=== PATIENT | female | born 2000 | race Caucasian/White ===

== ENCOUNTER 2025-06-06 06:10 | Observation (INO) ==
--- NOTE | 2025-05-30 14:23 | Anesthesiology Consultation ---
Date of Service May 30, 2025 Assessment & Plan (1) Encounter for pre-operative examination: - check urine test STAT am DOS. - Per senior nuclear medicine technologist on 05/30/25: Strep throat diagnosed 05/16/25, completed antibiotic with persistent mild left sided throat irritation resolving with salt water rinse. COVID test not required given symptom onset greater than 10 days from procedure date. Chart Review Chart Review: Acceptable Risk for Surgery and Patient NOT seen in Pre Admission Testing History Surgery Operation Date: 06/06/25 07:30 Proposed Procedures p Bilateral Breast Reduction - Kourtney Narvaez MD Height/Weight Height: 5 ft 7 in Weight: 83.915 kg Allergies Allergy/AdvReac Type Severity Reaction Status Date / Time No Known Allergies Allergy Verified 05/30/25 13:28 Medications Home Medications Medication Instructions Recorded Confirmed Last Taken cholecalciferol (vitamin D3) 25 25 mcg PO DAILY 02/02/25 05/30/25 Unknown mcg (1,000 unit) capsule etonogestrel 68 mg subdermal 1 implant subdermal UD 02/02/25 05/30/25 Unknown implant (Nexplanon) ibuprofen 200 mg capsule 200 mg PO UD PRN Pain 02/02/25 05/30/25 Unknown magnesium 200 mg tablet 200 mg PO DAILY 02/02/25 05/30/25 Unknown cetirizine 10 mg tablet (Zyrtec) 10 mg PO UD PRN allergies 05/25/25 05/30/25 Unknown ondansetron HCl 4 mg tablet 4 mg PO Q6H PRN nausea and 05/25/25 05/25/25 Unknown vomiting #14 tabs albuterol sulfate 90 mcg/actuation 1 inh inhalation UD PRN hx 05/30/25 05/30/25 Unknown aerosol inhaler pneumnonia ascorbic acid 1,000 1 ea PO UD PRN immune support 05/30/25 05/30/25 Unknown fw-uelwlldnkdum-pqlyibap powder effervescent pack (Emergen-C) Past Medical History Medical History (Updated 05/30/25 @ 14:20 by Karina Doss PA-C) Anxiety, generalized controlled without medication at current History of COVID-2020, no hx hospitalization. History of pneumonia (09/2024) had lingering cough for 2 months following. Resolved. History of postoperative nausea and vomiting IBS (irritable bowel syndrome) PTSD (post-traumatic stress disorder) more of a hx per pt, controlled without medication at current. Past Family History Family History Other Asthma Cancer Stroke Past Surgical History Surgical History History of adenoidectomy History of wisdom tooth extraction Social History Smoking Status: Never smoker Do You Dip or Chew Tobacco: No Hx Alcohol Use: Yes Alcohol type: wine and hard liquor alcohol intake frequency: a few times a month Hx Substance Use: No substance use type: does not use Lab Results Anesthesia Preop Results Results Anesthesia Widget: WBC 10.35 K/ul (4.8-10.8) 05/25/25 Hgb 13.4 g/dl (12.0-16.0) 05/25/25 Hct 39.3 % (37.0-47.0) 05/25/25 Plt 368 K/uL (130-400) 05/25/25 Na 140 mmol/L (136-145) 05/25/25 K 4.3 mmol/L (3.5-5.1) 05/25/25 Cl 109 mmol/L (98-107) H 05/25/25 CO2 28 mmol/L (21-32) 05/25/25 BUN 15 mg/dl (6-23) 05/25/25 Creat 0.82 mg/dl (0.6-1.2) 05/25/25 Glucose Level 73 mg/dl (70-99(Fasting)) 05/25/25 PT 10.5 Seconds (9.0-12.0) 05/25/25 INR 1.0 (0.9-1.1) 05/25/25 Testing Electrocardiogram Date: 12/31/24 NSR, rate 89 bpm Nonspecific T wave abnormality Chest X-Ray Date: 10/17/24 No acute abnormality.
[2025-06-06] MEDS: LACTATED RINGER'S 1,000 ML IV SCH (06:50)
[2025-06-06] MEDS ORDERED: HYDROmorphone INJ 1 MG/ML SYRINGE IV PRN (06:51)
[2025-06-06] MEDS ORDERED: PROMETHAZINE HCL 6.25 MG in SODIUM CHLORIDE 0.9% 50 ML IV PRN (06:51)
[2025-06-06] MEDS ORDERED: ATROPINE SULFATE 0.1 MG/ML 10ML SYR IV PRN (06:51)
[2025-06-06] MEDS ORDERED: ONDANSETRON INJ 2 MG/ML 2 ML VIAL IV PRN ×2 (06:51→10:46)
--- NOTE | 2025-06-06 07:00 | History & Physical Bridge Note ---
Date of Service June 06, 2025 History & Physical Bridge Note I have examined the patient, reviewed the History & Physical and in the interval since the performance of the History & Physical I have noted the following changes of clinical significance: no changes noted Discussed technique-patient has given considerable thought to procedure and prefers free nipple grafting due to desire for smaller size (B cup if possible). Understands implications of technique-lack of sensation to NAC, inability to breastfeed. Consent obtained
[2025-06-06] MEDS ORDERED: LIDOCAINE 2% 2 ML VIAL/AMP(20MG/ML) INFIL ONE (07:03)
[2025-06-06] MEDS ORDERED: PROPOFOL IV EMULSION 10 MG/ML 20 ML VIAL IV ONE ×2 (07:03→08:55)
[2025-06-06] MEDS ORDERED: ROCURONIUM BROMIDE 10 MG/ML 5 ML VIAL IV ONE (07:03)
[2025-06-06] MEDS ORDERED: ONDANSETRON INJ 2 MG/ML 2 ML VIAL ONE (07:03)
[2025-06-06] MEDS ORDERED: MIDAZOLAM HCL 1 MG/ML 2ML VIAL ONE (07:04)
[2025-06-06] MEDS ORDERED: DexMEDEtomidine HCL IV 100 MCG/ML VIAL IV ONE (07:10)
[2025-06-06] MEDS: APREPITANT 40 MG CAP PO SCH (07:12)
[2025-06-06] MEDS: SCOPOLAMINE 1 MG/72 HR TDSY PATCH TD ONE (07:12)
[2025-06-06] MEDS ORDERED: ACETAMINOPHEN 1000 MG/100 ML IV IV ONE (07:14)
[2025-06-06] MEDS ORDERED: HYDROmorphone INJ 2 MG/ML SYR/VIAL ONE (08:00)
[2025-06-06] MEDS ORDERED: PHENYLEPHRINE HCL 10 MG/ML VIAL ONE (08:33)
[2025-06-06] MEDS: BUPIVACAINE 0.25% PF 30 ML VIAL ONE (10:29)
[2025-06-06] MEDS: LIDOCAINE 1%/EPINEPHRINE 1:100,000 50 ML VIAL ONE (10:30)
[2025-06-06] MEDS ORDERED: SUGAMMADEX SODIUM 200 MG/2 ML VIAL IV ONE (10:38)
[2025-06-06] MEDS ORDERED: GLYCOPYRROLATE 0.2 MG/ML VIAL ONE (10:40)
[2025-06-06] MEDS ORDERED: NEOSTIGMINE METHYLSULFATE 1 MG/ML 10ML VIAL ONE (10:40)
--- NOTE | 2025-06-06 10:40 | Post Operative Brief Note ---
PG Immediate Post Op with CF Date of Surgery June 06, 2025 Pre & Post Diagnosis Operation Date: 06/06/25 07:30 Pre-Op Diagnosis: Symptomatic Macromastia Post-Op Diagnosis: Symptomatic Macromastia I identified the patient and participated in the time-out.: Yes Procedure Operation Date: 06/06/25 07:30 Actual Procedures p Bilateral Breast Reduction with Free Nipple Graft(Bilateral) - Kourtney Narvaez MD Surgeon Kourtney Narvaez MD Electrical Wiring Lineman Leyla Benedict PA-C Estimated Blood Loss 15 Findings Consistent with Post-Op Diagnosis Specimens Specimen Description: A) Left breast tissue (to be weighed by pathology, call 2306 with result) B) Right breast tissue (to be weighed by pathology, call 2306 with results) Drains Chaim-Bolden Drain
[2025-06-06] MEDS ORDERED: MoRPHine SULFATE 2 MG/ML CARP IV PRN ×2 (10:46)
[2025-06-06] MEDS ORDERED: LORazepam 0.5 MG TAB PO PRN (10:46)
[2025-06-06] MEDS ORDERED: PROMETHAZINE 12.5 MG/50.5 ML BAG IV PRN (10:53)
--- NOTE | 2025-06-06 11:26 | Operative Report ---
PG Post Operative Report Pre & Post Diagnosis Operation Date: 06/06/25 07:30 Pre-Op Diagnosis: Symptomatic Macromastia Post-Op Diagnosis: Symptomatic Macromastia I identified the patient and participated in the time-out.: Yes Procedure Operation Date: 06/06/25 07:30 Actual Procedures p Bilateral Breast Reduction with Free Nipple Graft(Bilateral) - Kourtney jorgensen MD Surgeon Kourtney Narvaez MD Weaving Inspector Leyla Benedict PA-C Estimated Blood Loss 15 Findings Consistent with Post-Op Diagnosis Specimens left breast 740 grams, right breast 636 grams Drains JPx2 Anesthesia Type General Complications none Indications back, neck and bilateral shoulder pain, intertrigo secondary to macromastia Description of Procedure The risks, benefits and alternatives of the procedure were explained to the patient who agreed and signed consent. We discussed free nipple grafting again as well as consequences such as loss of nipple sensation, inability to breastfeed, and loss of breast projection, with the benefit being smaller breast size. She desired a B/C cup if possible. She was identified and marked in the preoperative holding area. She was brought to the operating room where she was positioned supine and placed under general anesthesia without incident. Surgical site markings were again reassessed. I began with the left breast. 1% lidocaine with epinephrine was used to anesthetize the planned incisions as well as the nipple areolar complex. A breast tourniquet was applied using the Neema clamp and lap sponge. A 38 mm cookie cutter was used to circumscribe the nipple-areolar complex. The nipple-areolar complex was then removed as a full thickness graft and placed on the back table in saline soaked sponge. At this point, tourniquet was released and the inframammary fold incision was made using 15 blade scalpel. Electrocautery was used to deepen the incision through subcutaneous fat and breast parenchyma down to chest wall. Care was taken to perform this in a bevelled direction ligating vessels as needed and achieving hemostasis with electrocautery. Once the breast was mostly undermined, the superior incision was then made to the inferior aspect of the keyhole incision. This was performed using a 15 blade scalpel. Incision was then deepened using electrocautery again full thickness through the breast. A similar incision was made laterally. Centrally, the skin was incised using electrocautery and additional breast parenchyma was resected again in a beveled fashion in order to retain some projection of the breast. Tissue was passed off for weighing. Additional resection was performed until we achieved the desired size and the wound was able to be closed with minimal tension. Total resection weight on the left was 740 grams. Hemostasis was achieved with electrocautery 0.25% Marcaine plain was used to anesthetize the incisions as well as pectoralis fascia. A 15 Croatian Lawson drain was brought out through a separate stab incision lat erally toward the axilla. The keyhole was then incised using 15 blade scalpel and deepithelialized. T-junction was brought together using 2-0 Vicryl suture. Closure was begun first lateral to medial using 2-0 Vicryl deep dermal sutures and then medial to lateral using 2-0 Vicryl deep dermal sutures. Vertical limb was closed using a combination of 2-0 Vicryl deep dermal sutures and a 3-0 PDS interrupted dermal sutures. The inframammary fold incision was closed using 2-0 PDO deep dermal running Quill suture. The vertical limb was then closed using 3-0 Monocryl running subcuticular suture. Nipple areolar complex was inspected and thinned using a curved iris scissor. It was placed in the recipient bed and sutured into place using 4-0 silk tie over bolster sutures and 4-0 chromic interrupted sutures. A similar procedure was undertaken on the right side. Total resection weight was 636 grams on the smaller right side. There was reasonable symmetry at the close of the case. No complications. Sylke was applied to the incisions. Dry dressing followed by a surgical bra were placed. The patient was awakened and transferred to the recovery room in satisfactory condition. Leyla Dunham PA-C was present and scrubbed throughout the entire procedure and was instrumental in providing retraction, preparing the nipple graft and assisting in simultaneous wound closure. I attest to the content of the Intraoperative Record and any orders documented therein. Any exceptions are noted below.
--- NOTE | 2025-06-06 11:54 | Anesthesiology Progress Note ---
Date of Service June 06, 2025 Anesthesia Post Procedure Vital Signs Vital Signs: Temp Pulse Resp BP Pulse Ox O2 Del Method O2 Flow Rate 06/06/25 11:45 61 16 98/63 L 93 Room Air 06/06/25 11:30 36.4 C L 63 15 104/58 L 93 Room Air 06/06/25 11:20 75 15 114/60 95 Room Air 06/06/25 11:10 68 15 107/56 L 100 Oxymask 9 06/06/25 11:00 67 14 104/50 L 99 Oxymask 9 06/06/25 10:53 36.0 C L 79 15 99/54 L 95 Oxymask 9 06/06/25 06:34 37 C 71 20 120/79 100 Room Air Pain Intensity Bilateral Breast: Pain Intensity: 3 Transfer of Care Handoff Completed per policy Notes Mental Status: alert / awake / arousable Patient Amnestic to Procedure: Yes Nausea / Vomiting: adequately controlled Pain: adequately controlled Airway Patency, RR, SpO2: stable & adequate BP & HR: stable & adequate Hydration State: stable & adequate Anesthetic Complications: no major complications apparent and Pt Satisfied with anesthetic care
[2025-06-06] MEDS ORDERED: CETIRIZINE HCL 10 MG TABLET PO PRN (12:12)
[2025-06-06] MEDS ORDERED: ALBUTEROL HFA 8 GM INHALER INH PRN (12:12)
[2025-06-06] MEDS ORDERED: ONDANSETRON 4 MG OD TAB PO PRN (12:17)
[2025-06-06] MEDS ORDERED: ETONOGESTREL 68 MG IMPLANT SQ SCH (12:30)
[2025-06-06] MEDS: TRANEXAMIC ACID 1,000 MG **IV Pre-op IV SCH (12:39)
[2025-06-06] MEDS: D5W AND 1/2NSS + 20MEQ KCL 20 MEQ/1,000 ML BAG IV SCH (13:08)
[2025-06-06] MEDS: COUGH DROP (SUGAR FREE) LOZ 24 LOZ/1 BOX BUCCAL PRN (16:19)
--- NOTE | 2025-06-06 16:19 | Surgery Progress Note ---
Date of Service June 06, 2025 Assessment & Plan (1) S/P bilateral breast reduction: Plan: Nica is doing well! No concerns on physical exam. Plan for discharge to home in the AM. Admission and Anticipated Discharge Date Admission Date: June 06, 2025 Joshua Saenz is several hours s/p Bilateral Breast Reduction. She is doing well! Pain is controlled with PRN pain medication. She does report some mild post-op nausea. She has tolerated some watermelon and has voided on her own. Physical Exam Physical Exam: Surgical bra and dressings in place. Nipple bolsters in place. Dressings dry. Bilateral drains with bloody output, no blood clots in drainage tubes. Results & Data Vital Signs (Past 12 Hours) Vital Signs Temp Pulse Pulse Resp BP BP Pulse Ox 06/06/25 15:46 36.5 C 72 14 99/63 L 98 06/06/25 13:53 36.5 C 64 17 105/70 97 06/06/25 12:59 36.3 C L 65 17 110/74 99 06/06/25 12:28 36.3 C L 66 16 111/75 100 06/06/25 12:00 36.4 C L 71 17 106/67 94 06/06/25 11:45 61 16 98/63 L 93 06/06/25 11:30 36.4 C L 63 15 104/58 L 93 06/06/25 11:20 75 15 114/60 95 06/06/25 11:10 68 15 107/56 L 100 06/06/25 11:00 67 14 104/50 L 99 06/06/25 10:53 36.0 C L 79 15 99/54 L 95 06/06/25 06:34 37 C 71 20 120/79 100 O2 Del Method O2 Flow Rate 06/06/25 15:46 Room Air 06/06/25 13:53 Room Air 06/06/25 12:59 Room Air 06/06/25 12:28 Room Air 06/06/25 12:00 Room Air 06/06/25 11:45 Room Air 06/06/25 11:30 Room Air 06/06/25 11:20 Room Air 06/06/25 11:10 Oxymask 9 06/06/25 11:00 Oxymask 9 06/06/25 10:53 Oxymask 9 06/06/25 06:34 Room Air PG Care Time/CCT Total # of Minutes Spent Total Time Spent with Patient: Total time spent is greater than 50% in coordination of care (as documented) at patient's floor/unit and/or counseling patient: Coding Level of Care Code 96645 Post Operative Follow-Up Diagnoses S/P bilateral breast reduction Z98.890
[2025-06-06] MEDS: CHECK SCOPOLAMINE PATCH PLACEMENT SCH (16:37)
[2025-06-07] MEDS: diphenhydrAMINE Capsule 25 MG CAP PO PRN (00:18)
[2025-06-07 07:26] VITALS: BP 112/71; PULSE 76; RESP 20; TEMP 98.4; O2SAT 97
[2025-06-07] MEDS: MULTIVITAMIN TAB PO SCH (08:41)
--- NOTE | 2025-06-07 11:36 | Surgery Progress Note ---
Date of Service June 07, 2025 Assessment & Plan (1) S/P bilateral breast reduction: Plan: Nica is 1 day s/p Bilateral Breast Reduction. She is doing very well! Bilateral drains removed. No concerns on physical exam. Bilateral nipple bolsters in place. She is aware that she is keep surgical site dry. She is to keep dressings and surgical bra in place until her visit tomorrow. All questions answered. Return precautions reviewed. Ok for discharge to home with follow-up in office tomorrow, 06/08. Admission and Anticipated Discharge Date Admission Date: June 06, 2025 Subjective Nica is 1 day s/p Bilateral Breast Reduction. She is doing very well! Her pain is controlled with PRN pain medication. She denies any post-op nausea. She is tolerating a regular diet and voiding on her own. Drain output for right drain is approximately 10cc and left drain 15 cc overnight. She feels ready to go home. Review of Systems Constitutional: as per Subjective / HPI; no fever and no chills Respiratory: no cough, no chest congestion and no dyspnea Cardiovascular: no chest pain, no chest pain at rest and no radiating jaw, neck or arm pain Physical Exam Physical Exam: On physical exam- nipple bolsters in place- bilateral breast incisions intact with Sylke tape in place. No signs of hematoma formation. Bilateral drains removed today at bedside today without issue. Optifoam dressings placed. No signs of infection on exam. She is very happy with breast size! Constitutional: WD/WN, vitals as above Respiratory: normal respiratory effort; no respiratory distress and no labored breathing Psychiatric: A+Ox3, euthymic affect Results & Data Vital Signs (Past 12 Hours) Vital Signs Temp Pulse Resp BP Pulse Ox O2 Del Method 06/07/25 07:26 36.9 C 76 20 112/71 97 Room Air 06/07/25 03:05 37.1 C 72 16 109/71 98 Room Air PG Care Time/CCT Total # of Minutes Spent Total Time Spent with Patient: Total time spent is greater than 50% in coordination of care (as documented) at patient's floor/unit and/or counseling patient: Coding Level of Care Code 34230 Post Operative Follow-Up Diagnoses S/P bilateral breast reduction Z98.890
--- NOTE | 2025-06-08 08:30 | Discharge Summary ---
Date of Service June 08, 2025 Admission HPI Per Admitting Provider Please see admission H and P. Admission Exam Per Admitting Provider Please see admission H and P. Principal Diagnosis Bilateral Symptomatic Macromastia Discharge Exam On physical exam- nipple bolsters in place- bilateral breast incisions intact with Sylke tape in place. No signs of hematoma formation. Bilateral drains removed today at bedside today without issue. Optifoam dressings placed. No signs of infection on exam. She is very happy with breast size! Constitutional WD/WN, vitals as above Respiratory normal respiratory effort; no respiratory distress and no labored breathing Psychiatric A+Ox3, euthymic affect Discharge Data Allergies Allergy/AdvReac Type Severity Reaction Status Date / Time No Known Allergies Allergy Verified 06/06/25 06:32 Procedures Performed Operation Date: 06/06/25 07:30 Actual Procedures p Bilateral Breast Reduction with Free Nipple Graft(Bilateral) - Kourtney Narvaez MD Hospital Course (1) S/P bilateral breast reduction: Nica is a 25-year-old female with Bilateral Symptomatic Macromastia. She was taken to the OR and underwent bilateral breast reduction. There were no intraoperative complications. She was taken to the recovery area and then transferred to [facility] for overnight observation. On POD #1, she was feeling a bit sore, but was overall doing very well. She was tolerating a regular diet and voiding on her own. On exam, her vitals were stable. No concerns with surgical site, bilateral nipple bolsters in place. Bilateral drains were removed at bedside without issue. Optifoam dressings were placed. She was discharged home with instructions to follow-up in our office in 1 day. All questions answered. Total Time Total Time Spent Total Time Spent (In Minutes): 10 Discharge Plan Discharge Items Patient Disposition: Home - Self-Care Reason For Visit: Symptomatic Macromastia Discharge Diagnosis: Symptomatic Macromastia Activity: As commented below Non-emergency contact: Surgeon Call non-emergency contact if: you have any medication questions, your pain is not controlled, your temperature is above 101.5, your wound has increased redness and your wound has increased drainage Follow-up/Referrals: Andres Dugan RN [Primary Care Provider] - Kourtney Narvaez MD [Physician] - 06/08/25 2:00 pm Diet: Regular Addtl Attending Provider Instructions: ACTIVITY RECOMMENDATIONS: __Normal activities _X_No bending, lifting or straining __No driving _X_Driving allowed when you are off pain medications X_Walking permitted __You should have help at home for ___ days __You may return to previous diet. DRESSINGS: __No dressings required _X_Keep surgical bra and dressings dry/in place until first office visit __Remove dressings ___ and leave dressings off __Apply ice ___ days __Remove dressings and reapply garment __Apply antibiotic ointment (Bacitracin, Neosporin, etc) to wounds 3-4 times/day for 10 days BATHING: _X_Keep dressings dry _X_Sponge bathing permitted __Showering permitted X__No swimming, hot tubs or soaking in a tub MEDICATIONS: Resume previous medications unless instructed otherwise by your surgeon. X__Do not use aspirin, Motrin, Advil or Ibuprofen as these may promote bleeding. Please use Tylenol. X__Prescription(s) provided: Prescription for post-op antibiotic was sent to your pharmacy yesterday, please begin today. Prescriptions for post-op pain medication and post-op nausea sent to your pharmacy after your last office visit. Please use as prescribed. SPECIAL CARE INSTRUCTIONS: * It is normal to have a mild fever after surgery. If your temperature is higher than 101.5 degrees F, please call the office at [phone]. * Constipation is a typical side effect of pain medication. An kjqj-upy-ibagcxy stool softener will help relieve this. * Leaking around surgical drains may occur and should not cause concern. Sometimes these drains become clogged. If this happens, remove the bulb and milk the clot out of the tube, then replace the bulb. * Drainage from wounds after liposuction is normal and should be expected. Garments will become soiled. You should protect furniture and bedding. This drainage should mostly subside within 2-3 days. Leave garments in place unless instructed to remove them. * If you have unusual drainage from a wound or are concerned you have an infection or have any questions or concerns, please call the office at [phone]. FOLLOW UP VISIT: If not already scheduled, please call the office, , when you return home after surgery to schedule an appointment to be seen in _1__ day. Pending Studies at Discharge: Yes Studies:: Path report. Stand-Alone Forms: My [facility] [employer], Smoking Cessation Medications and DC Order Prescriptions: Continued cephalexin 500 mg capsule 500 mg PO TID 7 Days Qty: 21 0RF Rx Instructions: Please begin when discharged home from surgery. Nexplanon 68 mg implant 1 implant subdermal UD Patient Comments: current, don't know dose details. left arm. cetirizine [Zyrtec] 10 mg tablet 10 mg PO UD PRN (Reason: allergies) ondansetron HCl 4 mg tablet 4 mg PO Q6H PRN (Reason: nausea and vomiting) Qty: 14 0RF Emergen-C 1,000 mg Powder Effervescent In Packet 1 ea PO UD PRN (Reason: immune support) albuterol sulfate 90 mcg/actuation Hfa Aerosol Inhaler 1 inh INHALATION UD PRN (Reason: hx pneumnonia) Patient Comments: last use oct 2024 oxycodone-acetaminophen [Percocet] 5-325 mg Tablet 1 tab PO Q4H PRN (Reason: Pain) Discontinued ibuprofen 200 mg capsule 200 mg PO UD PRN (Reason: Pain) magnesium 200 mg tablet 200 mg PO DAILY Patient Comments: currently out of cholecalciferol (vitamin D3) 25 mcg (1,000 unit) capsule 25 mcg PO DAILY Discharge Orders: Discharge Order (Routine); Ordered 06/07/25 Ordered By: Leyla Alford/Other Patient Handouts: Breast Reduction Surgery Admission Data Admit Date/Time: 06/06/25 10:47 Attending Provider: Kourtney Narvaez Admit Provider: Kourtney Narvaez Primary Care Provider: Andres Dugan Other Interventions: Discharge Summary Assessment (RN) Last Done: 06/07/25 11:44 Coding Level of Care Code 36751 OBS Care - Discharge Diagnoses S/P bilateral breast reduction Z98.890
[2025-06-09] MEDS ORDERED: REMOVE TRANSDERM-SCOP PATCH ONE (06:00)
== END 2025-06-07 13:44 | disposition home or self-care (01) ==
LOC: ASU 06:10 → 3W 06:10